=== PATIENT | female | born 1930 | race Caucasian/White ===

== ENCOUNTER → 2017-07-10 | Outpatient (REF) | payer MEDICARE, OTHER ==
[~2017-07-10] MED LIST: CIPR-214 PO; CORED OT; MECL12.5 PO; RIVA20TA PO
== END ==
LOC: ZZSENDIN 17:15
PROVIDERS: ATTEND Physician Assistant
DX: N39.0 Urinary tract infection, site not specified (principal)
CPT/HCPCS: 81001; 87088

== ENCOUNTER → 2017-08-23 | Outpatient (REF) | payer MEDICARE, OTHER | LOC: ZZSENDIN 14:12 | PROVIDERS: ATTEND Physician Assistant | DX: R35.8 Other polyuria (principal) | CPT/HCPCS: 81001 ==

== ENCOUNTER → 2017-12-06 | Outpatient (CLI) | payer MEDICARE ==
--- NOTE | 2017-12-10 11:28 | RADIOLOGY IMAGING REPORT ---
FACILITY: [facility] [place] PATIENT NAME: LARON SOLARES : [id number] MR: [id number] V: [id number] EXAM DATE: ORDERING PHYSICIAN: SHANICE WALTERS TECHNOLOGIST: Tashia Hdez PROCEDURE:BILATERAL DIGITAL SCREENING MAMMOGRAM WITH CAD ASSISTED INTERPRETATION & 3D TOMOSYNTHESIS COMPARISON:Prior mammograms 11/15/16, 10/18/16, 08/10/14, 02/27/13. INDICATIONS:SCREENING FINDINGS: Moderately heterogeneous fibroglandular tissue is seen throughout the breasts. The parenchymal pattern has remained stable allowing for difference in mammographic technique & patient positioning. There is no evidence of malignant appearing mass, malignant appearing calcifications or other secondary sign of malignancy in either breast. DIAGNOSTIC CATEGORY 1--NEGATIVE. RECOMMENDATIONS: ROUTINE MAMMOGRAM AND CLINICAL EVALUATION. IMPRESSION: BIRADS 1: Negative. No significant abnormality is seen. Dictated by: Nga Hays M.D. on 12/06/2017 at 15:16 Transcribed by: JOSLYN on 12/06/2017 at 15:22 Approved by: Nga Hays M.D. on 12/10/2017 at 11:27 [facility]
== END ==
LOC: MAMO 00:21
PROVIDERS: ATTEND Physician Assistant
DX: Z12.31 Encounter for screening mammogram for malignant neoplasm of breast (principal)
CPT/HCPCS: 77063; 77067